=== PATIENT | female | born 1955 | race African-American/Black ===

== ENCOUNTER 2020-05-18 08:25 | Outpatient (CLI) | payer BC, SELFPAY ==
--- NOTE | ~2020-05-18 | MR_ITS ---
EXAMINATION: MR brain/brain stem wo con EXAM DATE: 05/18/2020 11:16 INDICATION: Seizure. History of stroke. TECHNIQUE: Magnetic resonance imaging (MRI) of the brain/brain stem obtained without contrast. Maryellen al T1, axial diffusion, gradient echo (T2*), T1, T2, FLAIR sequences obtained. There is no prior st udy for comparison. FINDINGS: There are no areas of restricted diffusion to suggest acute infarction. There is no acute hemorrhage seen on the T2*, a hemosiderin sensitive sequence. No intraparenchymal brain mass. The ve ntricles are normal in size. There are no extra-axial collections. Flow voids are seen in the cereb ral arteries on the T2-weighted sequences consistent with their expected patency. The orbits are unr emarkable. Soft tissue is unremarkable. IMPRESSION: 1. Normal brain MRI examination. Reviewed, dictated and finalized at location A.
--- NOTE | 2020-05-19 11:22 | WPDNEUROLOGY ---
Neurology EEG Report General Information Date of Study: 05/18/20 TEST eeg DIAGNOSIS Seizures CONDITION OF RECORDING awake and drowsy and sleep EEG NUMBER [id number] CLINICAL HISTORY patient reported she had a stroke 5 years ago that left her with stuttering of speech for a while but got better. Couple of months ago she started with stuttering again. EEG DESCRIPTION basic resting occipital frequency consists of large amount of low to medium voltage 8 to 10 hertz per second alpha admixed with low-voltage 15 to 18 hertz per second beta. During drowsiness low-voltage beta activity seen diffusely bilateral symmetrical sleep activity seen during brief periods of sleep. hyperventilation not done ,photic stimulation produced normal driving. Non paroxysmal ,nonfocal, nonlateralizing. IMPRESSION no significant abnormalities noted
== END 2020-05-18 08:26 | disposition home or self-care (01) ==
PROVIDERS: PCP Physician Assistant; Visit Provider Psychiatry & Neurology Neurology
DX: R56.9 Unspecified convulsions (principal)
CPT/HCPCS: 70551; 95816

== ENCOUNTER 2024-11-17 20:31 | Emergency (ER) | payer MEDICARE, SELFPAY ==
--- NOTE | ~2024-11-17 | XR_ITS ---
EXAMINATION: XR thoracic spine 3V, [id number] DATE: 11/17/2024 21:34 INDICATION: Fall with right-sided back and rib pain. TECHNIQUE: 1. One AP, lateral and lateral swimmer's views of the thoracic spine were obtained. 2. PA view of the chest and 3 views of the right ribs were obtained. COMPARISON: None. FINDINGS: Thoracic spine: There are 11 paired rib-bearing thoracic segments. 12 degrees thoracic dextrocurvature. Vertebral body heights are normal. Multilevel mild to moderate disc height loss throughout the thoracic spine in the visualized mid to lower cervical spine.. Chest and right ribs: Lungs are clear with no focal airspace opacities, pulmonary edema, pleural effusion or pneumothorax. No rib fractures identified. Additional degenerative skeletal changes at the bilateral shoulders. IMPRESSION: 1. 12 degrees thoracic dextrocurvature with mild to moderate cervical and thoracic spondylosis. 2. No rib fracture or acute cardiopulmonary disease. Reviewed, dictated and finalized at location A. IMPRESSION: 1. 12 degrees thoracic dextrocurvature with mild to moderate cervical and thora cic spondylosis. 2. No rib fracture or acute cardiopulmonary disease.
--- OUTSIDE RECORDS SUMMARY | 2024-11-17 20:34 | XMS_ITS | Clinical Summary ---
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 Gender Identity Not on file Sexual Orientation Not on file Plan of Treatment Health Maintenance Due Date Last Done Comments Hepatitis C Virus (HCV) Screening 1955 TdaP Immunization 1955 Cologuard 1998 Colonoscopy 1998 Colorectal Cancer Screening 1998 Immunochemical Fecal Occult Blood 1998 Pneumococcal Immunization (5 0+ years) (1 of 1 - PCV) 04/30/2003 Zoster Immunization (1 of 2) 04/30/2003 Influenza Immunization (#1) 10/20/202411/19, 02/02/2015 SARS-COV-2 Immunization ( season) 2024 05/10/2020, 04/12/2020 Respiratory Syncytial Virus (RSV) Immunization (Adult) (1 - 1-dose 75+ series) 2028 Hepatitis B Immunization Aged Out No longer eligible based on patient's age to complete this topic Human Papillomavirus (HPV) Immunization Aged Out No longer eligible b ased on patient's age to complete this topic Meningococcal Immunization (ACWY) Aged Out No longer eligible b ased on patient's age to complete this topic Rotavirus Immunization Aged Out No lo nger eligible based on patient's age to complete this topic
--- OUTSIDE RECORDS SUMMARY | 2024-11-17 20:34 | XMS_ITS | Encounter Summary ---
Author Organization [facility] [employer] [facility] , [facility] Address [address] [place] [address] Phone Care Team Providers Care Smoke And Flame Specialist Name Role Phone Al Harris Primary Care Provider [phone] Encounter Details Date Type Department Care Team (Late st Contact Info) Description 08/12/2020 Orders Only [place] [employer] [facility], [facility] [address] [facility] [address] [place] [id number] Lorenzo Israel DO [address] [facility] [address] [place] [address] Stage 3 chronic kidney disease, not otherwise specified (HCC); Hypertension; Asthma - currently active; Erosive osteoarthritis; Peptic ulcer Social History Tobacco Use Types Packs/Day Years Used Date Smoking Tobacco: Never Comments Unknown Sex and Gender Information Value Date Recorded Sex Assigned at Not on file Legal Sex Female 2:53 PM EDT Gender Identity Not on file Sexual Orientation Not on file documented as of this encounter Plan of Treatment Not on file documented as of this encounter Visit Diagnoses Diagnosis Stage 3 chronic kidney disease, not otherwise specified (HCC) Hypertension Asthma - currently active Erosive osteoarthritis Peptic ulcer documented in this encounter Care Teams Smoke And Flame Specialist Relationship Specialty Start Date End Date Al Harris PA PCP - General 06/29/20 documented as of this encounter
--- OUTSIDE RECORDS SUMMARY | 2024-11-17 20:34 | XMS_ITS | Clinical Summary ---
Author Organization [facility] Address [address] [place] [address] Care Team Providers Care Plate Washer Name Role Phone Al Harris Primary Care Provider Allergies No known active allergies Medications albuterol HFA (PROVENTIL HFA;VENTOLIN HFA) 108 (90 Base) MCG/ACT inhaler INHALE 2 PUFFS BY MOUTH THREE TIMES DAILY NEEDED 1 Active allopurinol (ZYLOPRIM) 100 MG tablet TAKE 3 TABLETS BY MOUTH EVERY DAY AT BEDTIME 1 Active baclofen (LIORESAL) 10 MG tablet Take 10 mg by mouth 3 (three) times a day if needed 1 Active chlorthalidone (HYGROTON) 50 MG tablet Take 50 mg by mouth 1 (one) time each day 1 Active spironolactone (Aldactone) 25 MG tablet Take 1 tablet (25 mg total) by mouth 1 (one) time each day 90 tablet 1 1 Active budesonide-form oterol (Symbicort) 160-4.5 MCG/ACT inhaler Inhale 2 puffs 2 (two) times a day Rinse mouth with water after use to reduce aftertaste and incidence of candidiasis. Do not swallow. 3 Inhaler 2 1 Active atorvastatin (LIPITOR) 10 MG tablet Take 1 tablet (10 mg total) by mouth every night 90 tablet 1 2 Active metFORMIN (GLUCOPHAGE) 500 MG tablet TAKE 1 TABLET(500 MG) BY MOUTH TWICE DAILY 180 tablet 1 2 Active Family History Medical History Relation Comments Hypertension Father Heart disease Mother Hypertension Mother Hypertension Sister Relation Status Comments Father Mother Sister Social History Tobacco Use Types Packs/Day Years Used Date Smoking Tobacco: Never Smokeless Tobacco: Never Comments Unknown Sex and Gender Information Value Date Recorded Sex Assigned at Not on file Legal Sex Female 2:53 PM EDT Gender Identity Not on file Sexual Orientation Not on file Last Filed Vital Signs Vital Sign Reading Time Taken Comments Blood Pressure 160/64 11/22/2021 2:39 PM CDT Pulse 68 11/22/2021 2:39 PM CDT Temperature 36.1 C (97 F) 11/22/2021 2:39 PM CDT Respiratory Rate 18 11/22/2021 2:39 PM CDT Oxygen Saturation 99% 11/22/2021 2:39 PM CDT Inhaled Oxygen Concentration - - Weight 112 kg (248 lb) 11/22/2021 2:39 PM CDT Height 152.4 cm (5') 11/22/2021 2:39 PM CDT Body Mass Index 48.43 11/22/2021 2:39 PM CDT Plan of Treatment Health Maintenance Due Date Last Done Comments Breast Cancer Screening 1955 Pneumococcal Vaccine: 50+ Ye ars (1 of 2 - PCV) 1972 Colorectal Cancer Screening: Annual FOBT 2002 Colorectal Cancer Screening: Colonoscopy 2002 Colorectal Cancer Screening: Sigmoidoscopy 2002 Influenza Vaccine (#1) 2024 Hepatitis B Vaccine Aged Out No longe r eligible based on patient's age to complete this topic Insurance [facility] Medicare Care Teams Plate Washer Relationship Specialty Start Date End Date Al Harris PA PCP - General 06/29/20
--- OUTSIDE RECORDS SUMMARY | 2024-11-17 20:35 | XMS_ITS | Clinical Summary ---
Author Organization [facility] Address [address] [place] [address] Care Team Providers Care Patient Case Coordinator Name Role Phone Al Harris Primary Care Provider + Social History Tobacco Use Types Packs/Day Years Used Date Smoking Tobacco: Never Assessed Comments Unknown Sex and Gender Information Value Date Recorded Sex Assigned at Not on file Legal Sex Female 7:29 PM CDT Gender Identity Not on file Sexual Orientation Not on file Plan of Treatment Health Maintenance Due Date Last Done Comments Colorectal Cancer Screening Colonoscopy (10 Years) 1955 Hepatitis C 04/30/1971 DTaP, Tdap and Td Vaccines ( 1 - Tdap) 1972 Pneumococcal Vaccine: 50+ Years (1 of 1 - PCV) 04/30/2003 Zoster Vaccines (1 of 2) 04/30/2003 Dexa Scan (General) 2018 Mammogram Screening 07/05/2022 07/05/2020, 07/26/2017 COVID-19 Vaccine (3 - 2024-2 6 season) 2024 05/10/2020, 04/12/2020 RSV Immunization or 60+ Years (1 - 1-dose 75+ series) 2028 Meningococcal B Vaccine Aged Out No l onger eligible based on patient's age to complete this topic Meningococcal Vaccine Aged Out No corine serena eligible based on patient's age to complete this topic RSV Immunizations Under 20 Months Aged Out No longer eligible b ased on patient's age to complete this topic Procedures Procedure Name Priority Date/Time Associated Diagnosis Comments MG SCREENING W HOLDEN DUANE DIGI Routine 07/05/2020 11:33 AM CDT Encounter for screening mammogram for malignant neoplasm of breast from Last 3 Months or Most Recently Relevant to Health Maintenance Results * MG SCREENING W HOLDEN DUANE DIGI (07/05/2020 11:33 AM CDT) Anatomical Region Laterality Modality Breast Bilateral Mammography 07/05/2020 11:4 9 AM CDT Impressions 07/05/2020 11:51 AM CDT ===== IMPRESSION: ===== 1. Stable mammographic appearance with no new findings to suggest malignancy in either breast. Assessment: ACR BI-RADS CATEGORY 2 - BENIGN FINDING(S) Recommendation: 1: Routine screening mammogram bilateral in 1 year Comments: Referred By: JOCY PISANO Interpreted By: Aneesh Ramirez MD, 07/05/2020 11:49 AM Narrative 07/05/2020 11:51 AM CDT Examination: Digital bilateral screening mammogram with 3D Tomosynthesis Exam Date/Time: 07/05/2020 11:14 AM Reason For Exam: Encounter for screening mammogram for malignant neoplasm of breast No prior breast procedures. No personal or family history of breast cancer. No current complaints. Comparison: Mammograms from 07/26/2017 05/10/2016 09/18/2013 11/12/2012 Technique: Digital screening mammography of both breasts was performed in addition to 3-D Tomosynthesis technique. This study was read with the assistance of a computer-aided detection system. Tissue density: The breast tissue contains scattered fibroglandular densities. Findings: Benign secretory territory and punctate calcifications bilaterally. Benign axillary lymph nodes in both breasts. Overall parenchymal pattern unchanged from prior studies. There is no new focal asymmetry, dominant mass lesion, area of skin thickening, or cluster of suspicious appearing calcifications in either breast to suggest malignancy. us Jocy Pisano MD MAMMO Final Result from Last 3 Months or Most Recently Relevant to Health Maintenance Insurance [facility] Care Teams Patient Case Coordinator Relationship Specialty Start Date End Date Al Harris PA PCP - General PHYSICIAN HEATING AND VENTILATING WORKER 06/28/20
[2024-11-17 20:37] VITALS: BP 164/67; PULSE 63; RESP 18; O2SAT 100
[2024-11-17 20:45] VITALS: BP 148/56; PULSE 63; RESP 18; O2SAT 100
--- NOTE | 2024-11-17 21:10 | ED_ITS ---
HPI - Fall General Chief Complaint: Fall Stated Complaint: fall, shoulder pain Time Seen by Provider: 11/17/24 20:35 History of Present Illness HPI Narrative: 69-year-old female presenting to the emergency department with right-sided flank/back pain. Patient states she fell last week and injured her right shoulder and landed onto her right side. She has already gotten x-rays of the shoulder and even an MRI that showed 2 different tears in her rotator cuff area. She has orthopedics follow-up scheduled for this. She states she has been having some pain in her right ribs posteriorly and right mid back from the fall that she did not get addressed as she was more worried about the shoulder. Has been taking Tylenol at home without any significant relief of symptoms. Denies any new traumatic injuries or falls. Symptoms intermittent for last week. No difficulties ambulating. She states she started to get some recovery back in her right shoulder with motion after the last week. Denies any head trauma or loss of consciousness. No blood thinner use. No epigastric or abdominal discomfort. No nausea, vomiting, chest pain, shortness a breath. No weakness or fatigue. No peripheral neuropathy. Related Data Allergies Allergy/AdvReac Type Severity Reaction Status Date / Time ciprofloxacin Allergy Intermediate Rash Verified 11/17/24 21:22 Review of Systems Review of Systems: As reviewed above in HPI Exam Narrative: GENERAL: [Well-appearing, well-nourished, and in no acute distress.] HEAD: [Normocephalic, atraumatic.] EYES: [PERRLA and EOMI.] ENT: Nares clear, no rhinorrhea or epistaxis. Mucous membranes moist. NECK: Supple. CHEST: [Clear to auscultation. No respiratory distress.] HEART: [Regular rate and rhythm]. No murmur heard. [Normal peripheral pulses.] ABDOMEN: [Soft, nondistended], [nontender], [No rigidity or guarding] EXTREMITIES: Normal range of motion in legs, some visual restricted range of motion the right upper extremity from shoulder injury. EHL and FHL 5/5 strength, ambulatory with no difficulties. Negative straight leg raise bilaterally. Tenderness along the right-sided periscapular area. No central tenderness over the cervical thoracic or lumbar spine. No step-offs deformities . No crepitus or overlying bruising or redness. SKIN: Warm, dry, no rash. NEURO: [No focal deficits]. Alert and oriented [x3.] PSYCH: [Normal mood and affect.] Course Vital Signs Vital signs: Vital Signs Pulse Rate 63 11/17/24 20:37 Respiratory Rate 18 11/17/24 20:37 Blood Pressure 164/67 H 11/17/24 20:37 Pulse Oximetry 100 11/17/24 20:37 Pulse Rate 58 L 11/17/24 22:59 Respiratory Rate 18 11/17/24 22:59 Blood Pressure 159/76 H 11/17/24 22:59 Pulse Oximetry 100 11/17/24 23:03 MDM - Fall MDM Narrative Medical decision making narrative: 69-year-old female presenting to the emergency department with right-sided flank/back pain. Patient states she fell last week and injured her right shoulder and landed onto her right side. She has already gotten x-rays of the shoulder and even an MRI that showed 2 different tears in her rotator cuff area. She has orthopedics follow-up scheduled for this. She states she has been having some pain in her right ribs posteriorly and right mid back from the fall that she did not get addressed as she was more worried about the shoulder. Has been taking Tylenol at home without any significant relief of symptoms. Denies any new traumatic injuries or falls. Symptoms intermittent for last week. No difficulties ambulating. She states she started to get some recovery back in her right shoulder with motion after the last week. Denies any head trauma or loss of consciousness. No blood thinner use. No epigastric or abdominal discomfort. No nausea, vomiting, chest pain, shortness a breath. No weakness or fatigue. No peripheral neuropathy. Normal range of motion of both lower extremities. Some restriction in the right upper extremity secondary to her rotator cuff injury.. EHL and FHL 5/5 strength, ambulatory with no difficulties. Negative straight leg raise bilaterally. Tenderness along the right-sided periscapular area. No central tenderness over the cervical thoracic or lumbar spine. No step-offs deformities. No crepitus or overlying bruising or redness. Suspect musculoskeletal contusions rather than ribcage fracture or vertebral i njury/fracture. No midline tenderness and no neurological deficits on exam. Reassuring vital signs with any tachycardia, fever, hypoxia or significant blood pressure concerns. Patient given [place] and Robaxin for analgesia and x-rays of the chest, ribs and spine were obtained. X-ray showed no traumatic injuries. Patient remains hemodynamically stable felt improved after medications. Safe for discharge home at this time. Given return precautions and already has orthopedics follow-up for her injuries. Medical Records Attestation: I reviewed the patient's medical records. Imaging Data Attestation: I personally reviewed and interpreted this imaging study as follows: My impression: Impressions Ribs w/Chest X-Ray 11/17/24 21:52 IMPRESSION: 1. 12 degrees thoracic dextrocurvature with mild to moderate cervical and thoracic spondylosis. 2. No rib fracture or acute cardiopulmonary disease. Thoracic Spine X-Ray 11/17/24 21:52 IMPRESSION: 1. 12 degrees thoracic dextrocurvature with mild to moderate cervical and thoracic spondylosis. 2. No rib fracture or acute cardiopulmonary disease. Discharge Plan Discharge Clinical Impression: Musculoskeletal back pain Patient Disposition: Home Condition: Stable Instructions: Antibiotic Form, Contusion in Adults (ED) Additional Instructions: X-rays do not show anything broken or displaced. Symptoms consistent with musculoskeletal pain and contusion. Take Tylenol and ibuprofen for pain control. Apply lidocaine patches the area that is hurting you. Return with any worsening pain or new symptoms, and otherwise follow-up with your technical specialist. Patient Language: Spanish Prescriptions: New ibuprofen 800 mg tablet 800 mg PO TID PRN (Reason: pain) Qty: 30 0RF acetaminophen [Tylenol Extra Strength] 500 mg tablet 1,000 mg PO TID PRN (Reason: pain) Qty: 30 0RF Follow-up/Referrals: Steven,KAYLIN Chong [Primary Care Provider, Family Practice] Time of Disposition: 23:03
[2024-11-17 21:19] VITALS: BP 139/65; PULSE 55; RESP 18; O2SAT 100
[2024-11-17] MEDS: HYDROcodone/acetaminophen (*CRX) 5-325 MG TABLET 1 TAB PO (21:21)
--- OUTSIDE RECORDS SUMMARY | 2024-11-17 21:54 | XMS_ITS | Encounter Summary ---
Author Organization [facility] , [facility] Address [address] [place] [address] Phone Care Team Providers Care Nuclear Medicine Specialist Name Role Phone Al Harris Primary Care Provider [phone] Encounter Details Date Type Department Care Team (Late st Contact Info) Description 08/12/2020 Orders Only [employer] [facility], [facility] [address] [facility] [address] [place] [id number] Lorenzo Israel DO [address] [facility] [address] [place] [address] Stage 3 chronic kidney disease, [...] ulcer documented in this encounter Care Teams Nuclear Medicine Specialist Relationship Specialty Start Date End Date Al Harris PA PCP - General 06/29/20 documented as of this encounter
--- OUTSIDE RECORDS SUMMARY | 2024-11-17 21:54 | XMS_ITS | Clinical Summary ---
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
--- OUTSIDE RECORDS SUMMARY | 2024-11-17 21:54 | XMS_ITS | Clinical Summary ---
Author Organization [facility] Address [address] [place] [address] Care Team Providers Care City Superintendent Name Role Phone Al Harris Primary Care [...] Insurance [facility] Care Teams City Superintendent Relationship Specialty Start Date End Date Al Harris PA PCP - General PHYSICIAN RIDE OPERATOR 06/28/20
[2024-11-17 22:59] VITALS: BP 159/76; PULSE 58; RESP 18; O2SAT 100
[2024-11-17 23:03] VITALS: O2SAT 100
== END 2024-11-17 23:09 | disposition home or self-care (01) ==
PROVIDERS: Emergency Provider Student in an Organized Health Care Education/Training Program; PCP Physician Assistant
DX: M54.89 Other dorsalgia (principal); W19.XXXA Unspecified fall, initial encounter
CPT/HCPCS: 71101; 72072; 99284; A9270

== ENCOUNTER 2025-01-09 11:45 | Outpatient (CLI) | payer MEDICARE, SELFPAY ==
--- OUTSIDE RECORDS SUMMARY | 2025-01-09 10:30 | XMS_ITS | Encounter Summary ---
Author Organization [facility] [employer] Address [address] [place] [address] Care Team Providers Care Glost Placer Name Role Phone Unavailable Primary Care Provider Unavailabl e Encounter Details Date Type Department Care Team (Late st Contact Info) Description 01/09/2025 10:30 AM PROPERTY AND SUPPLY OFFICER Office Visit [facility] Oncology and Hematology - Steven [address] [place] [address] Becca Goldberg MD [address] [place] [address] Anemia, chronic disease (Primary Dx) Social History Tobacco Use Types Packs/Day Years Used Date Smoking Tobacco: Never Smokeless Tobacco: Never Tobacco Cessation:Counseling Given: Not Answered Alcohol Use Standard Drinks/Week Comments Yes 0 (1 standard drink = 0.6 oz pur e alcohol) Occasionally Comments Unknown Sex and Gender Information Value Date Recorded Sex Assigned at Not on file Legal Sex Female 3:03 PM CDT Gender Identity Not on file Sexual Orientation Not on file documented as of this encounter Last Filed Vital Signs Vital Sign Reading Time Taken Comments Blood Pressure 149/81 01/09/2025 10:46 AM PROPERTY AND SUPPLY OFFICER Pulse 65 01/09/2025 10:42 AM PROPERTY AND SUPPLY OFFICER Temperature 36.2 C (97.2 F) 01/09/2025 10:42 AM PROPERTY AND SUPPLY OFFICER Respiratory Rate 16 01/09/2025 10:4 2 AM PROPERTY AND SUPPLY OFFICER Oxygen Saturation 97% 01/09/2025 10: 42 AM PROPERTY AND SUPPLY OFFICER Inhaled Oxygen Concentration - - Weight 106.5 kg (234 lb 12.8 oz) 2024 10:42 AM PROPERTY AND SUPPLY OFFICER Height 152.4 cm (5') 01/09/2025 10:42 AM PROPERTY AND SUPPLY OFFICER Body Mass Index 45.86 01/09/2025 10:42 AM PROPERTY AND SUPPLY OFFICER documented in this encounter Plan of Treatment Upcoming Encounters Date Type Department Care Team (Late st Contact Info) Description 03/25/2025 11:00 AM PROPERTY AND SUPPLY OFFICER Office Visit [facility] Oncology and Hematology - Steven [address] [facility] [address] [place] [address] Efrain Montalvo MD [address] [facility] [address] [place] [address] Scheduled Orders Name Type Priority Associated Diagnoses Orde r Schedule CBC WITH DIFFERENTIAL Lab Stat Anemia, chronic disease Expected: 01/09/2025, Expires: 01/09/2026 COMPREHENSIVE METABOLIC PANEL Lab Stat Anemia, chronic disease Expected: 01/09/2025, Expires: 01/09/2026 IRON, TIBC, AND PERCENT SATURATION Lab Routine Anemia, chronic disease Ordered: 01/09/2025 FERRITIN Lab Routine Anemia, chronic disease Ordered: 01/09/2025 VITAMIN B12 AND FOLATE Lab Routine Anemia, chronic disease Ordered: 01/09/2025 RETICULOCYTES Lab Routine Anemia, chronic disease Ordered: 01/09/2025 documented as of this encounter Visit Diagnoses Diagnosis Anemia, chronic disease- Primary Anemia of other chronic disease documented in this encounter
--- OUTSIDE RECORDS SUMMARY | 2025-01-09 11:48 | XMS_ITS | Clinical Summary ---
Author Organization [facility] Janae orona Himanshu Address [address] [place] [address] Care Team Providers Care Corporate Associate Name Role Phone Unavailable Primary Care Provider Unavailabl e Allergies Active Allergy Reactions Criticality Noted Date Comments Amoxicillin Swelling Low 01/09/2025 Ciprofloxacin Hcl Rash Low 11/24/2017 ciprofloxacin hydrochloride Medications chlorthalidone (HYGROTON) 25 mg tablet Take 25 mg by mouth daily. 12/29/2024 Active ibuprofen (MOTRIN) 800 mg tablet take 1 tablet by mouth three times a day as needed for pain 11/17/2024 Active losartan (COZAAR) 100 mg tablet Take 100 mg by mouth daily. 10/17/2024 Active metFORMIN (GLUCOPHAGE) 500 mg tablet Take 500 mg by mouth 2 times daily. Active nitrofurantoin (MACROBID) 100 mg capsule Take 1 Capsule by mouth 2 times daily. 10/20/2024 Active spironolactone (ALDACTONE) 25 mg tablet Take 25 mg by mouth daily. Active sucralfate (CARAFATE) 1 gram tablet TAKE 1 TABLET BY MOUTH FOUR TIMES A DAY NEEDED FOR 100 DAYS. 10/17/2024 Active venlafaxine (EFFEXOR) 75 mg tablet Take 75 mg by mouth daily. Active Encounters Date Type Department Care Team Description 01/09/2025 10:30 AM ABSTRACT MAKER Office Visit [facility] Oncology and Hematology - [address] [place] [address] Becca Goldberg MD Anemia, chronic disease (Primary Dx) from Last 3 Months Family History Medical History Relation Name Comments Lung Cancer Brother Prostate Cancer Brother Heart Disease Father Prostate Cancer Father Heart Disease Mother COPD Sister 6 sisters Colon Cancer Sister 6 sisters Diabetes Sister 6 sisters Heart Disease Sister 6 sisters Relation Name Status Comments Brother Other Father Mother Sister 6 sisters Other Social History Tobacco Use Types Packs/Day Years [...] Comments Blood Pressure 149/81 01/09/2025 10:46 AM ABSTRACT MAKER Pulse 65 01/09/2025 10:42 AM ABSTRACT MAKER Temperature 36.2 C (97.2 F) 01/09/2025 10:42 AM ABSTRACT MAKER Respiratory Rate 16 01/09/2025 10:4 2 AM ABSTRACT MAKER Oxygen Saturation 97% 01/09/2025 10: 42 AM ABSTRACT MAKER Inhaled Oxygen Concentration - - Weight 106.5 kg (234 lb 12.8 oz) 2024 10:42 AM ABSTRACT MAKER Height 152.4 cm (5') 01/09/2025 10:42 AM ABSTRACT MAKER Body Mass Index 45.86 01/09/2025 10:42 AM ABSTRACT MAKER Plan of Treatment Upcoming Encounters Date Type Department Care Team (Late st Contact Info) Description 03/25/2025 11:00 AM ABSTRACT MAKER Office Visit [facility] Oncology and Hematology - [place] [address] [facility] [address] [place] [address] Efrain Montalvo MD [address] [facility] [address] [place] [address] Health Maintenance Due Date Last Done Comments DTAP/TDAP/TD VACCINES (1 - Tdap) 1972 FIT-DNA Q 3 years 1998 FIT/FOBT Q 1 year 1998 Flex Sig/CT Colonography Q 5 years 1998 PNEUMOCOCCAL VACCINE 50+ YEA RS (1 of 1 - PCV) 04/30/2003 RSV VACCINE (60+ or ) (1 - Risk 50-74 years 1-dose series) 04/30/2003 ZOSTER VACCINE (1 of 2) 04/30/2003 BREAST CANCER SCREENING 07/05/2021 07/06/19 21, 07/05/2020, 07/26/2017 [place] Prev entative Visit/Annual Wellness Visit 02/20/2024 03/07/2021 INFLUENZA VACCINE (#1) 2024 OSTEOPOROSIS SCREENING 02/19/2025 02/20/2020 COLORECTAL SCREENING 03/22/2032 03/22/2022 Colorectal Cancer Screening 03/22/2032 Insurance [facility] [id number] [address] [id number]
--- OUTSIDE RECORDS SUMMARY | 2025-01-09 11:48 | XMS_ITS | Encounter Summary ---
Author Organization [facility] , [facility] Address [address] [place] [address] Phone Care Team Providers Care Stationary Engineer Name Role Phone Al Harris Primary Care Provider [phone] Encounter Details Date Type Department Care Team (Late st Contact Info) Description 08/12/2020 Orders Only Madison Nicholas Haddox Records [facility], [facility] [address] [facility] [address] [place] [id number] Lorenzo Israel DO [address] [facility] [address] [place] [address] Stage 3 chronic kidney disease, [...] ulcer documented in this encounter Care Teams Stationary Engineer Relationship Specialty Start Date End Date Al Harris PA PCP - General 06/29/20 documented as of this encounter
--- OUTSIDE RECORDS SUMMARY | 2025-01-09 11:48 | XMS_ITS | Data Portability ---
Author Organization [facility] , [facility]_Kevin Address [address] [place] [address] Assessment No assessment recorded. Plan of Treatment Reminders Order Date Submit Date Provider Last Modified By Organization Details Last Modified Time Details Appointments None recorded. Lab unlisted lab - sureswab(R ) advanced vaginitis plus, tma 2024 025 [facility], [address] [place], [address], 5 17:07:12 culture, urine 2024 025 [facility], [address] [place], [address], 5 17:07:12 urinalysis , dipstick 2024 025 [email or web address], [address] [place], [address], 5 13:25:59 Referral None recorded. Procedures None recorded. Surgeries None recorded. Imaging MAMMO, screening, digital, bilateral 2024 025 [facility] [address] [place], [address], 5 12:26:16 MAMMO, screening, tomosynthe sis, bilateral 01/17/ 2022 01/17/2 022 [email or web address] Not available 16:01:19 Medication Orders None recorded. Patient TargetsNo targets recorded. Patient Instructions Encounter Date Encounter Id Patient Instructions Last Modified By Organization Details Last Modified Time 10/17/2024 [id number] A healthy lifestyle: care instructions Not available 10/17/2024 12:43:59 calcium and vitamin D combination Not available 10/17/2024 12:43:59 eating healthy foods: care instructions Not available 10/17/2024 12:43:59 exercise program : getting started Not available 10/17/2024 12:43:59 Reason for Referral None Reported. Results Created Date Observation Date Name Description Value Unit Range Abnormal Flag Note LastModifiedBy Organization Detail LastModifiedTime 10/18/1910/20/2024 SURES WAB(R ) ADVAN LOTUS VAGIN ITIS PLUS, TMA sureswab(R) adv bacterial vaginosis (bv), tma NEGATI VE negati ve normal Not Available [address], [address], 10/20/2024 15:11:50 10/18/19 25 10/20/2024 SURES WAB(R ) ADVAN LOTUS VAGIN ITIS PLUS, TMA jens species NOT DETECT ED not detect ed normal Not Available [address], [address], 10/20/2024 15:11:50 10/18/1910/20/2024 SURES WAB(R ) ADVAN LOTUS VAGIN ITIS PLUS, TMA jens glabrata NOT DETECT ED not detect ed normal Trang da speci es C. albic ans, C. tropi calis , C. parap wilma is, and/o r C. dubli carlin is can be detec tj, but not diffe renti ated, in the Trang da spp. resul t. Not Available [address], [address], 10/20/2024 15:11:50 10/18/19 25 10/20/2024 SURES WAB(R ) ADVAN LOTUS VAGIN ITIS PLUS, TMA trichomonas vaginalis (TV), tma NOT DETECT ED not detect ed normal Not Available [address], [address], 10/20/2024 15:11:50 10/18/19 25 10/20/2024 SURES WAB(R ) ADVAN LOTUS VAGIN ITIS PLUS, TMA chlamydia trachomatis RNA, tma, urogenital NOT DETECT ED not detect ed normal Not Available [facility] [address], [address], 10/20/2024 15:11:50 10/18/19 25 10/20/2024 SURES WAB(R ) ADVAN LOTUS VAGIN ITIS PLUS, TMA neisseria gonorrhoeae RNA, tma, urogenital NOT DETECT ED not detect ed normal For addit ional infor darryl casiano refer to https ://ed ati on.qu eveNeocase Software/f aq/FA Q154 (This link is being provi ded for ita mccall/ meaghan bhat ses only. ) Not Available [address], [address], 10/20/2024 15:11:50 10/18/19 25 10/20/2024 CULTU RE, URINE , ROUTI NE culture, urine, routine SEE NOTE abnormal CULTU RE, URINE , ROUTI NE Micro Numbe r: [id number] Test Statu s: Final Speci men Sourc e: Urine , clean catch Speci men Quali ty: Adequ ate Resul t: 10,00 0-49, 000 CFU/m L of Esche real a coli E.col i ----- ----- ----- - INT ELINOR AMOX/ CLAVU LANAT E I 16 AMP/S ULBAC DIANE I 16 CEFAZ AMANDA NR 2 2 CEFEP LILIANA S <=0.1 2 CEFTA ZIDIM E S <=0.5 CEFTR IAXON E S <=0.2 5 CIPRO FLOXA QING S <=0.0 6 GENTA MICIN S <=1 IMIPE NEM S <=0.2 5 LEVOF LOXAC IN S <=0.1 2 MEROP ENEM S <=0.2 5 NITRO FURAN TOIN S <=16 PIP/T AZOBA CTAM S <=4 TRIME THOPR IM/VILLALPANDO LFA S <=20 S = Susce ptibl e I = Inter media te R = Resis tant NS = Not susce ptibl e SDD = Susce ptibl e Dose Depen dent * = Not Teste d NR = Not Repor tj NN = See Thera py Comme nts THERA PY COMME NTS Note 1: For infec tions other than uncom plica tj UTI cause d by E. coli, K. pneum oniae or P. mirab ilis: Cefaz amanda is resis tant if ELINOR > or = 8 mcg/m L. (Dist ingui shing susce ptibl e versu s inter media te for isola larry with ELINOR < or = 4 mcg/m L requi res addit ional testi ng.) Note 2: For uncom plica tj UTI cause d by E. coli, K. pneum oniae or P. mirab ilis: Cefaz amanda is susce ptibl e if ELINOR <32 mcg/m L and predi cts susce ptibl e to the oral agent s cefac ana, cefdi neal, cefpo doxim e, cefpr ozil, cefur oxime , cepha lexin and lorac arbef . Not Available [facility] [address] [place], [address], 10/20/2024 15:11:50 10/18/19 25 10/17/2024 urina lysis , dipst ick Leukocytes Trace Not Available [address], [address], 10/17/2024 12:49:52 10/18/19 25 10/17/2024 urina lysis , dipst ick Nitrite negati ve Not Available [address], [address], 10/17/2024 12:49:52 10/18/19 25 10/17/2024 urina lysis , dipst ick Protein 30 Not Available [address], [place], [address], 10/17/2024 12:49:52 10/18/19 25 10/17/2024 urina lysis , dipst ick pH 7.0 Not Available [address], [place], [address], 10/17/2024 12:49:52 10/18/1910/17/2024 urina lysis , dipst ick Blood Modera te Not Available [address], [place], [address], 10/17/2024 12:49:52 10/18/19 25 10/17/2024 urina lysis , dipst ick Specific Kopperl 1.000 Not Available [address], [place], [address], 10/17/2024 12:49:52 10/18/19 25 10/17/2024 urina lysis , dipst ick Ketone Small Not Available [address], [place], [address], 10/17/2024 12:49:52 10/18/19 25 10/17/2024 urina lysis , dipst ick Bilirubin Negati ve Not Available [address], [place], [address], 10/17/2024 12:49:52 10/18/19 25 10/17/2024 urina lysis , dipst ick Glucose Negati ve Not Available [address], [place], [address], 10/17/2024 12:49:52 10/18/1910/17/2024 urina lysis , dipst ick Appearance Slight ly Cloudy Not Available [facility] [address] [place], [address], 10/17/2024 12:49:52 10/18/1910/17/2024 urina lysis , dipst ick Color Pale Yellow Not Available [facility] [address] [place] [address] [place], [address], 10/17/2024 12:49:52 10/28/1910/27/2024 MAMMO , scree darryn, digit al, bilat eral No observ ation record ed. [email or web address] [address] [place], [address], 10/28/2024 12:26:16 Result Notes None recorded. Problems Name Problem SNOMED Code Status Onset Date Resolution Date Notes Provider Name and Address Organization Details Recorded Time Menopause present 846716075 Active 2017 Menopausal and female climacteri c states; Severity: Moderate Progress: Stable Added By: Mar Pisano Add to Current Problems: YES ProblemSta tus: Current Me nopausal symptoms; Location: None Severity: Moderate Progress: Stable Added By: Mar Pisano Add to Current Problems: YES ProblemSta tus: Resolve Not Available [facility] 1 05:50:55 Hypertens susana disorder 47758766 Active 2021 Margarita Abreu DO [address] [place] [address], [address] , [facility] 2 13:02:06 Hyperlipi demia 05364051 Active 2021 Margarita Abreu DO [address] [place] [address], [address] , [place] [facility] 2 13:02:17 Pancreati tis 68313020 Active 2021 Margarita Abreu DO [address] [place], [address] , [place] [facility] 2 13:02:28 Diverticu litis 652234119 Active 2021 Margarita Abreu DO [address] [place], [address] , [facility] 2 13:02:46 History of transient ischemic attack 314241670 Active 2021 Margarita Abreu DO [address] [place], [address] , [facility] 2 13:03:10 Acquired absence of cervix and uterus 653277254 Active 2024 TJ CASTRO, PHILANTHROPY OFFICER [address] [place], [address] , [employer] [facility] [employer] [facility] IV 5 08:44:02 Problem Notes None recorded. Procedures Surgical History Date Name Laterality Status Provider Name and Address Organization Details Recorded Time 10/18/19 25 Most Recent Mammogram completed Nino Dennis [place] [facility] 10/28/2024 12:25:42 06/20/19 23 Date of Last Pap Smear completed Ting [facility] 10/17/2024 12:10:17 03/22/19 23 Date of Last Colonoscopy completed [facility] IV 10/17/2024 12:14:51 02/19/19 21 Most Recent Bone Density completed Ting [facility] - [facility] IV 10/17/2024 12:14:42 hysterectomy completed Ting [facility] IV 10/17/2024 12:16:19 Diagnostic colonoscopy completed Kiana Bullard [facility] - [facility] IV 03/05/2021 16:48:59 Removal of Ovaries completed [facility] 03/07/2021 12:22:09 Gall bladder completed [facility] 03/07/2021 12:22:09 Imaging Results None recorded. Procedure Notes None recorded. Medical Equipment None Reported. Allergies Allergen ID Allergen Name Allergen Category Reaction Reaction Severity Criticality Documentation Date Start Date Code Code System Note Provider Name and Address Organization Details Recorded Time 542803 ciproflox acin hydrochlo ride medicatio n Not available Not available Not available 12/10/20202017 80072 RxNorm Sever ity: Moder ate; Not Available [facility] 01:15:00 061905 codeine phosphate medicatio n Not available Not available Not available 12/10/20202017 2672 RxNorm Sever ity: Moder ate; Not Available [facility] 01:15:00 Medications Name Sig Start Date Stop Date Status Note LastModified by Organization Details LastModified Time celecoxib 200 mg capsule 03/07 completed Not Available Not Available Not Available cyclobenz aprine 10 mg tablet TAKE 1 TABLET BY MOUTH THREE TIMES DAILY NEEDED MUSCLE SPASMS 10/17 completed Not Available Not Available Not Available amoxicill in 500 mg capsule TAKE 2 CAPSULES DAY 1 BY MOUTH STARTING ON DAY 2 TAKE EVERY 8 HOURS BY MOUTH UNTIL GONE. 10/17 completed Not Available Not Available Not Available atorvasta tin 40 mg tablet Take 1 tablet every day by oral route. active Not Available Not Available No t Available metformin 500 mg tablet TAKE 1 TABLET BY MOUTH TWICE A DAY active Not Available Not Available No t Available promethaz ine-DM 6.25 mg-15 mg/5 mL oral syrup TAKE 5 ML BY MOUTH THREE TIMES DAILY NEEDED 03/07 completed Not Available Not Available Not Available clonidine HCl 0.1 mg tablet 1 po qd 03/07 completed Clonidin e HCl 0.1 mg oral tablet RxNorm: 052240 Allow Substitu tion: True Refill Denied: No Refill DateOccu rred: 11/25/19 18 Edited by: Tia Christian ) on 09/11/19 20 Stopped by: Tia Christian ) on Not Available Not Available Not Available venlafaxi ne ER 75 mg capsule,e xtended release 24 hr TAKE ONE CAPSULE BY MOUTH DAILY AT 9AM 10/17 completed Not Available Not Available Not Available atorvasta tin 20 mg tablet Take 1 tablet(s ) by mouth daily 03/07 completed atorvast atin 20 mg oral tablet RxNorm: 728846 Allow Substitu tion: True Refill Denied: No Refill DateOccu rred: 11/25/19 18 Edited by: Tia Christian ) on 09/11/19 20 Stopped by: Tia Christian ) on Not Available Not Available Not Available venlafaxi ne 75 mg tablet TAKE 1 TABLET BY MOUTH EVERY DAY active Not Available Not Available No t Available azithromy qing 250 mg tablet 03/07 completed Not Available Not Available Not Available ibuprofen 800 mg tablet TAKE 1 TABLET BY MOUTH THREE TIMES DAILY WITH FOOD NEEDED 10/17 completed Not Available Not Available Not Available sucralfat e 1 gram tablet TAKE 1 TABLET BY MOUTH FOUR TIMES A DAY NEEDED FOR 100 DAYS. 2024 active Not Available Not Available Not Avai lable ondansetr on HCl 4 mg tablet 03/07 completed Ondanset stacy HCl 4 mg oral tablet RxNorm: 495326 Allow Substitu tion: True Refill Denied: No Refill DateOccu rred: 05/30/19 19 Edited by: Tia Christian ) on 09/11/19 Stopped by: Tia Christian ) on Not Available Not Available Not Available prednison e 20 mg tablet TAKE 2 TABLETS BY MOUTH TWICE DAILY DAILY X 2 DAYS 1 TABLET BY MOUTH TWICE DAILY X 5 DAYS 1/2 TABLET TWICE DAILY X 2 DAYS 1/2 TABLET ONCE 10/17 completed Not Available Not Available Not Available acetamino phen 300 mg-codein e 30 mg tablet TAKE 1 TABLET BY MOUTH EVERY 4 TO 6 HOURS NEEDED FOR PAIN 10/17 completed Not Available Not Available Not Available chlorthal idone 25 mg tablet TAKE 1 TABLET BY MOUTH DAILY 10/17 completed Not Available Not Available Not Available chlorthal idone 50 mg tablet TAKE 1 TABLET BY MOUTH EVERY DAY 03/07 completed Not Available Not Available Not Available allopurin ol 100 mg tablet TAKE 1 TABLET BY MOUTH EVERY DAY active Not Available Not Available No t Available spironola ctone 25 mg tablet TAKE 1 TABLET BY MOUTH EVERY DAY active Not Available Not Available No t Available amoxicill in 500 mg tablet 03/07 completed Not Available Not Available Not Available Macrobid 100 mg capsule Take 1 capsule every 12 hours by oral route for 7 days. 11/03 completed Not Available Not Available Not Available Flagyl 500 mg tablet 09/10 completed Flagyl 500 mg oral tablet RxNorm: 130567 Allow Substitu tion: True Refill Denied: No Refill DateOccu rred: 05/30/19 19 Edited by: Tia Christian ) on 09/11/19 Stopped by: Tia Christian ) on 09/11/19 Not Available Not Available Not Available baclofen 10 mg tablet TAKE 1 TABLET BY MOUTH THREE TIMES DAILY NEEDED 03/07 completed Not Available Not Available Not Available pantopraz ole 40 mg tablet,de layed release TAKE 1 TABLET BY MOUTH EVERY DAY BEFORE A MEAL active Not Available Not Available No t Available losartan 25 mg tablet Take 1 tablet(s ) by mouth daily 03/07 completed Losartan 25 mg oral tablet RxNorm: 092547 Allow Substitu tion: True Refill Denied: No Refill DateOccu rred: 11/25/19 18 Edited by: Tia Christian ) on 09/11/19 Stopped by: Tia Christian ) on Not Available Not Available Not Available indometha qing 50 mg capsule 09/10 completed Indometh acin 50 mg oral capsule RxNorm: 680175 Allow Substitu tion: True Refill Denied: No Refill DateOccu rred: 11/27/19 18 Edited by: Tia Christian ) on 09/11/19 Stopped by: Tia Christian ) on 09/11/19 Not Available Not Available Not Available butalbita l-aspirin -caffeine 50 mg-325 mg-40 mg tablet 03/07 completed Butalbit al/Aspir in/Caffe ine Allow Substitu tion: True Refill Denied: No Refill DateOccu rred: 11/25/19 18 Edited by: latanya hanna(Mar Zepeda ) on 09/11/19 Stopped by: latanya hanna(Mar Zepeda ) on Not Available Not Available Not Available butalbita l-aspirin -caffeine 50 mg-325 mg-40 mg capsule 03/07 completed Butalbit al/Aspir in/Caffe ine Allow Substitu tion: True Refill Denied: No Refill DateOccu rred: 11/25/19 18 Edited by: latanya hanna(Dann mcknight Mar ) on 09/11/19 20 Stopped by: latanya hanna(Mar Zepeda ) on Not Available Not Available Not Available docusate sodium 100 mg capsule TAKE 1 CAPSULE BY MOUTH TWICE DAILY active Not Available Not Available No t Available gabapenti n 300 mg capsule 03/07 completed Not Available Not Available Not Available aspirin 81 mg chewable tablet 1 tab daily 2017 active aspirin 81 mg oral tablet,c hewable RxNorm: 974730 Allow Substitu tion: True Refill Denied: No Refill DateOccu rred: 11/25/19 18 Edited by: Tia Christian ) on 09/11/19 Stopped by: Tia Christian ) on Not Available Not Available Not Available monteluka st 10 mg tablet TAKE 1 TABLET BY MOUTH EVERY DAY active Not Available Not Available No t Available clobetaso l 0.05 % topical ointment 10/17 completed Not Available Not Available Not Available methylpre dnisolone 4 mg tablets in a dose pack FOLLOW PACKAGE DIRECTIO NS 10/17 completed Not Available Not Available Not Available albuterol sulfate HFA 90 mcg/actua tion aerosol inhaler INHALE 2 PUFFS BY MOUTH THREE TIMES DAILY NEEDED active Not Available Not Available No t Available ondansetr on 4 mg disintegr ating tablet DISSOLVE 1 TABLET ON THE TONGUE EVERY 6 HOURS NEEDED FOR NAUSEA OR VOMITING 10/17 completed Not Available Not Available Not Available losartan 100 mg tablet TAKE 1 TABLET BY MOUTH EVERY DAY 2024 active Not Available Not Available Not Avai lable Effexor XR Take 1 capsule by mouth daily 11/26 completed Effexor XR 37.5mg Capsules , Extended Release RxNorm: 664563 Allow Substitu tion: True Refill Denied: No Refill Note: No longer taking Refill DateOccu rred: 11/25/19 18 Not Available Not Available Not Available allopurin ol 03/07 completed Allopuri nol Allow Substitu tion: True Refill Denied: No Refill DateOccu rred: 11/27/19 18 Edited by: latanya hanna(Mar Zepeda ) on 09/11/19 20 Stopped by: latanya hanna(Mar Zepeda ) on Not Available Not Available Not Available budesonid e-formote rol HFA 160 mcg-4.5 mcg/actua tion aerosol inhaler INHALE 2 PUFFS BY MOUTH TWICE DAILY. RINSE MOUTH WITH WATER AFTER USE TO REDUCE AFTERTAS TE AND INCIDENC E OF CANDIDIA SIS. DO NOT SWALLOW 10/17 completed Not Available Not Available Not Available levocetir izine 5 mg tablet TAKE 1 TABLET BY MOUTH EVERY DAY IN THE MORNING active Not Available Not Available No t Available Vitals Date Recorded Body height Body mass index (BMI) Body weight Body temperature Systolic And Diastolic Provider Name and Address Organization Details Last Updated DateTime 03/07/2021 157.48 cm 45.7 kg/m2 759689. 09 g 98.9 [degF] 162/78 mm[Hg] Jennifer Wiggins [facility] 12:21:02 Date Recorded Body height Body mass index (BMI) Body weight Systolic And Diastolic Provider Name and Address Organization Details Last Updated DateTime 10/17/2024 157.48 cm 42.6 kg/m2 637435.3 g 148/82 mm[Hg] Ting Valadez [facility] 10/17/2024 12:23:01 Social History Question Answer Notes LastModified by Organizat ion Details LastModified Time Tobacco Smoking Status Never Smoker Jennifer Rosalie [facility] 03/07/2021 12:22:04 Are You Blind Or Do You Have Difficulty Seeing? No Wears Glasses Information not available 10/17/2024 Are You Deaf Or Do You Have Serious Difficulty Hearing? No Information not available 10/17/2024 What Type Of Diet Are You Following? REGULAR Information not available 03/07/2021 How Many Children Do You Have? [address] [email or web address] Information not available 10/17/2024 What Is Your Relationship Status? Single Information not available 03/07/2021 Are You Sexually Active? No Information not available 03/07/2021 Sex: Unknown Functional Status Question Answer Note LastModified by Organizat ion Details LastModified Time Do you use any illicit or recreational drugs? No [email or web address] Information not available 10/17/2024 Do you or have you ever used any other forms of tobacco or nicotine? No [email or web address] Information not available 10/17/2024 What is your level of alcohol consumption? Occasional Information not available 03/07/2021 Do you or have you ever used e-cigarettes or vape? Never used electronic cigarettes Information not available 03/07/2021 What is your exercise level? Moderate Information not available 03/07/2021 Mental Status None recorded. Family History Relationship Description Onset Age of this Age Resolved Age Notes LastModified by Organization Details LastModified Time Father Hypertensive disorder [email or web address] Not available 02/19 16:49:42 Mother Hypertensive disorder [email or web address] Not available 02/19 16:49:42 Mother Myocardial infarction cduft Not available 03/07 12:21:22 Sister Myocardial infarction cduft Not available 03/07 12:21:22 Sister Hypertensive disorder cduft Not available 2021 12:21:22 Medical History Condition Response Anxiety Disorder Y High Blood Pressure Y Arthritis Y High Cholesterol Y Stroke Y Ulcer Y Asthma Y Kidney Disease Y Gynecological History Statement/Question Response Date of Last Colonoscopy 03/22/2022 Flow Heavy Frequency of Cycle (Q days) 28 Date of LMP 03/23/1983 Most Recent Bone Density 02/20/2020 Date of Last Pap Smear 06/19/2022 Duration of Flow (days) 5 Most Recent Mammogram 10/17/2024 Current Control Method Hysterectom y Age at Menarche 9 Obstetrics History GPAL:G 2 P 1 0 1 1 Type Value Full Term 1 Living 1 Ectopics 1 Total 2 Past Encounters Encounter ID Performer Location Encounter Start Date Encounter Closed Date Diagnosis/Indication Diagnosis SNOMED-CT Code Diagnosis ICD10 Code Diagnosis IMO Codes Diagnosis Note [id number] Margarita Abreu DO [facility] [address] [place] [address] 03/07/2021 11:56:47 03/09/2021 07:17:01 Gynecologic examination 05825606 Z01.419 Screening for malignant neoplasm of breast 809183083 Z12.39 [id number] Dominga Keating MD [facility] h [address] [place] [address] 10/17/2024 11:25:46 10/17/2024 13:00:36 Gynecologic examination 33929100 Z01.419 Screening for malignant neoplasm of breast 697455042 Z12.39 Depression screening 171 344688 Z13.31 Vaginal discharge 312851 006 N89.8 Malodorous urine 8554459 01 R82.90 [id number] Health Concerns Section Related Observation LastModified by Organization Detai ls LastModified Time None Recorded Concern Status LastModified by Organization Details LastModified Time None Recorded Advance Directives Directive None Recorded Payers Insurance Date Sequence Insurance Name Policy Number Policy Ceja Covered Member ID Ceja Member ID Guarantor Name 10/21/2024 [facility] (MEDICARE REPLACEMENT/A DVANTAGE - HMO) [id number] Alejandrina Fuentes [id number] Alejandrina Fuentes 10/17/2024 [facility] (MEDICARE REPLACEMENT/A DVANTAGE - PPO) [id number] Alejandrina Fuentes [id number] Alejandrina Fuentes 10/17/2024 2 [place] 104 Alejandrina Fuentes [id number] Alejandrina Fuentes 03/09/2021 2 [place] 104 Alejandrina Fuentes [id number] Alejandrina Fuentes 10/17/2024 1 [place] Alejandrina Fuentes [id number] Alejandrina Fuentes Notes Date Note Type Note Provider Name and Address Organization Details Recorded Time 2 text/html Annual [employer] Out Worker Post-MenopausalReported by Patient Annual GYNReported by Patient Patient presents for annual exam without pap. Last pap: 05/29/18 normal Last mammogram: 07-05-2020 normal, LMP: menopausal, history of hysterectomy. Margarita Abreu DO [address] [place], [address], [facility] 03/07/2021 12:55:43 5 text/html Annual Vamp Cut Out Worker Post-MenopausalReported by PatientGenitourinary symptomsFor vagina, patient reportswhite. For vaginal bleeding, patient reportshistory of menopause having occurredandno history of post menopausal bleeding. For urinary symptoms, patient reportsno hematuria,no incontinence,no nocturia, andno urinary frequency. For vulva, patient reportsno genital lesion.Breast symptomsFor breast, patient reportsno breast lump,no nipple discharge, andno breast pain.Psychological symptomsFor sexual complaints, patient reportssexual activity denied. For psychological symptoms, patient reportsdepressionandanxie ty(on medication).Preventative measuresFor preventive measures, patient reportsencourage self breast examination,encourage regular exercise,needs to schedule mammogram, andhistory of recent colonoscopy.ROS as noted in the HPI Alejandrina 69 y/o here for annual well women visit, she is post hysterectomy, Last pap 2022, Last WWE 2021, Last mammogram 06/20/2023, Last colonoscopy 2022, Last dexa scan 2020 Dominga Keating MD [address] [facility], [place], [address], [facility] 10/19/2024 08:39:10 OBGyn Episode No OBEpisode recorded.
--- OUTSIDE RECORDS SUMMARY | 2025-01-09 11:48 | XMS_ITS | Clinical Summary ---
Author Organization [facility] Address [address] [place] [id number] Care Team Providers Care Healthcare Administration Intern Name Role Phone Al Harris Primary Care [...] Screening 07/05/2022 07/05/2020, 07/26/2017 COVID-19 Vaccine (3 2024-2 6 season) 2024 05/10/2020, 04/12/2020 Influenza Adult (#1) 2024 RSV Immunization or 60+ Years (1 - 1-dose 75+ series) 2028 Hepatitis A Vaccines Aged Out No long er eligible based on patient's age to complete this topic Meningococcal B Vaccine Aged Out No l [...] Most Recently Relevant to Health Maintenance Insurance [facility] Care Teams Healthcare Administration Intern Relationship Specialty Start Date End Date Al Harris PA PCP - General PHYSICIAN DATA COMPILER 06/28/20
--- OUTSIDE RECORDS SUMMARY | 2025-01-09 11:48 | XMS_ITS | Clinical Summary ---
Author Organization [facility] Facility Address [address] [place] [id number] Care Team Providers Care Procurement Forester Name Role Phone Al Harris Primary Care [...] patient's age to complete this topic Insurance [facility] Medicare Care Teams Procurement Forester Relationship Specialty Start Date End Date Al Harris PA PCP - General 06/29/20
--- OUTSIDE RECORDS SUMMARY | 2025-01-09 11:48 | XMS_ITS | Clinical Summary ---
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
[2025-01-09 12:42] LABS: Hematocrit 34.1 % (37.0-47.0); Hemoglobin 10.3 g/dL (12.0-15.0); Immature Granulocyte Percent A 0.2 % (0-0.5); Immature Reticulocyte Fraction 29.6 % (3.0-15.9); Lymphocytes Absolute Auto 0.90 K/mm3 (0.9-3.2); Mean Corpuscular HGB Conc 30.2 g/dl (32-36); Mean Corpuscular Hemoglobin 23.1 pg (26-34); Mean Corpuscular Volume 76.6 fl (80-100); Nucleated Red Blood Cells Absolute Auto 0.000 K/mm3 (0.0-0.012); Nucleated Red Blood Cells Perc 0.0 % (0.0-0.2); Platelet Count Result 285 k/mm3 (150-375); Red Blood Count 4.45 M/mm3 (4.2-5.4); Reticulocyte Hemoglobin Conten 25.4 pg (28.2-36.6); Reticulocytes Absolute 0.07 10^6/uL (0.02-0.10); White Blood Count 4.9 K/mm3 (4.5-10.0)
[2025-01-09 12:59] LABS: Alanine Aminotransferase 18 U/L (6-35); Albumin Level 4.0 g/dL (3.5-5.1); Alkaline Phosphatase 111 U/L (38-126); Anion Gap 7 mmol/L (4-12); Aspartate Amino Transferase 27 U/L (14-36); Bilirubin,Total 0.3 mg/dL (0.2-1.3); Blood Urea Nitrogen 21 mg/dL (7-17); Calcium 9.0 mg/dL (8.4-10.2); Carbon Dioxide 25 mmol/L (22-30); Chloride 103 mmol/L (98-107); Estimated Glomerular Filt Rate 51; Glucose 85 mg/dL (65-110); Iron 43 ug/dL (37-170); Potassium 4.1 mmol/L (3.4-5.0); Sodium 135 mmol/L (137-145); Total Protein 7.0 g/dL (6.3-8.2)
[2025-01-09 13:16] LABS: Percent Iron Saturation 11 % (20-50)
[2025-01-09 13:44] LABS: Ferritin 7.19 ng/mL (11.1-264)
[2025-01-09 14:13] LABS: Vitamin B12 588.0 pg/mL (239-931)
== END 2025-01-09 11:46 | disposition home or self-care (01) ==
LOC: ANHLAB 11:46
PROVIDERS: PCP Physician Assistant; Visit Provider Internal Medicine Hematology & Oncology
DX: D64.9 Anemia, unspecified (principal)
CPT/HCPCS: 36415; 80053; 82607; 82728; 82746; 83540; 83550; 85025; 85046